=== PATIENT | male | born 1950 | race Two or more races ===

== ENCOUNTER 2016-12-11 17:00 | Emergency (ER) | payer OTHER ==
[~2016-12-11] VITALS: Ht 180.3 cm; Wt 113.4 kg
[2016-12-11 17:16] VITALS: BP 118/72
[2016-12-11 17:50] LABS: Basophils # (auto) 0 uL; CONDITION Y; Eosinophils # (auto) 0.1 uL; Eosinophils % (auto) 0.7 % (0.0-7.0); Hematocrit 41.6 % (41.0-53.0); Hemoglobin 14.1 g/dL (13.5-17.5); Lymphocytes # (auto) 1.2 uL; Lymphocytes % (auto) 9.3 % (10.0-50.0); Mean Corpuscular Hemoglobin 30.9 pg (28.0-32.0); Mean Corpuscular Volume 90.8 fL (80.0-100.0); Mean Platelet Volume 10.3 fL (7.4-10.4); Monocytes % (auto) 7.6 % (0.0-12.0); Neutrophils # (auto) 10.7 uL; Neutrophils % (auto) 82.4 % (37.0-80.0); Platelet Count (auto) 167 10^3/uL (140-450); Red Cell Distribution Width 14.4 % (11.6-16.0)
[2016-12-11 18:12] LABS: Albumin 3.2 g/dL (3.4-5.0); Bilirubin, Total 0.9 mg/dL (0.2-1.0); Calcium 8.2 mg/dL (8.5-10.1); Magnesium 2.2 mg/dL (1.6-2.6); Potassium 3.5 mmol/L (3.5-5.1); Total Protein 6.4 g/dL (6.4-8.2)
== END 2016-12-11 18:37 | disposition left against medical advice (07) ==
LOC: ER 17:10
DX: R06.02 Shortness of breath (principal); Z53.21 Procedure and treatment not carried out due to patient leaving prior to being seen by health care provider
CPT/HCPCS: 36415; 80053; 83735; 84484; 85025; 93005